=== PATIENT | female | born 1945 | race Caucasian/White ===

== ENCOUNTER 2018-09-23 09:54 | Day surgery (SDC) | payer MEDICARE ==
[~2018-09-23 09:54] MED LIST: Acetaminophen TAB* 325 MG PO PRN; Buffered Lidocaine 1% SYRIN* 1 ML/SYRINGE INTRADERM ONE
[2018-09-23] MEDS ORDERED: Midazolam* 1 MG/ML 2 ML VIAL (2 MG) ONE (12:50)
[2018-09-23 13:40] VITALS: BP 140/67
[2018-09-23] MEDS ORDERED: Ketorolac 0.5% OPHTH (NF) 0.5 % 5 ML BTL ONE (13:50)
[2018-09-23] MEDS ORDERED: Cyclopentolate 1% OPTH.SOL* 2 ML BTL ONE (13:50)
[2018-09-23] MEDS ORDERED: Neomycin/Polymy/Dex OPTH.SUSP* MAXITROL 0.1% 5 ML ONE (13:50)
[2018-09-23] MEDS ORDERED: Lidocaine 1%* 5 ML VIAL ONE (13:50)
[2018-09-23] MEDS ORDERED: Povidone Iodine 5% OPTH* 30 ML BTL ONE (13:50)
[2018-09-23] MEDS ORDERED: Lidocaine 2% EPI 1:200000 MPF*10-20 ML VIAL ONE (13:50)
[2018-09-23] MEDS ORDERED: acetaZOLAMIDE TAB* 250 MG ONE (13:50)
[2018-09-23] MEDS ORDERED: Proparacaine 0.5% OPHTH.SOL* 15 ML BTL ONE (13:50)
[2018-09-23] MEDS ORDERED: Phenylephrine OPHTH SOL 2.5%* 2 ML ONE (13:50)
--- NOTE | 2018-09-23 14:02 | OP ---
OPERATIVE NOTE: DATE OF OPERATION: 09/23/18 DATE OF : 41 SURGEON: Biju Beard M.D. PREOPERATIVE DIAGNOSIS: Cataract, left eye. POSTOPERATIVE DIAGNOSIS: Cataract, left eye. OPERATIVE PROCEDURE: Extracapsular cataract extraction with intraocular lens implant left eye. PROCEDURE: The patient was brought to the operating room after being given 1/2% Alcaine with epineph rine drops in the preoperative area. The eye was prepped and draped in the usual sterile fashion. S terile drape and eyelid speculum were placed. Again, topical 1/2% Alcaine with epinephrine was given . A paracentesis incision was made at the 3 o'clock position with the No.75 blade. Clear cornea inc ision 2.2 x 2.2-mm was created at the 6 o'clock position starting at the anterior limbus using the 2. 2-mm keratome. The anterior chamber was irrigated with 0.4 mL of 1% non-preservative intracameral li docaine and filled with DisCoVisc. A capsulorrhexis was completed using the cystotome and the Utrata forceps. Hydrodissection was performed with balanced salt solution. The lens nucleus was removed wi th the Phacoemulsification handpiece without incident. Cortex was removed with the irrigation-aspira tion handpiece. The capsular bag was re-inflated using DisCoVisc and an [id number] implant was insert ed with the shooter. The irrigation-aspiration handpiece was used to remove all residual DisCoVisc. The eye was refilled with balanced salt solution and the wound checked and found to be watertight. Topical Maxitrol drops were given. [id number]/[facility] #: [id number]
== END 2018-09-23 13:27 | disposition home or self-care (01) ==
LOC: OREAST 09:54
PROVIDERS: ATTEND Specialist
DX: H25.12 Age-related nuclear cataract, left eye (principal); I10 Essential (primary) hypertension; H52.229 Regular astigmatism, unspecified eye; Z87.891 Personal history of nicotine dependence
CPT/HCPCS: A9270-GY; J2250; V2632

== ENCOUNTER 2018-09-30 10:29 | Day surgery (SDC) | payer MEDICARE ==
[2018-09-30] MEDS ORDERED: fentaNYL* 50 MCG/ML 2 ML VIAL (100 MCG VIAL) ONE (11:05)
[2018-09-30] MEDS ORDERED: Midazolam* 1 MG/ML 2 ML VIAL (2 MG) ONE (11:05)
[2018-09-30] MEDS ORDERED: Cyclopentolate 1% OPTH.SOL* 2 ML BTL ONE (13:45)
[2018-09-30] MEDS ORDERED: Lidocaine 1%* 5 ML VIAL ONE (13:45)
[2018-09-30] MEDS ORDERED: Ketorolac 0.5% OPHTH (NF) 0.5 % 5 ML BTL ONE (13:45)
[2018-09-30] MEDS ORDERED: Proparacaine 0.5% OPHTH.SOL* 15 ML BTL ONE (13:45)
[2018-09-30] MEDS ORDERED: Lidocaine 2% EPI 1:200000 MPF*10-20 ML VIAL ONE (13:45)
[2018-09-30] MEDS ORDERED: Neomycin/Polymy/Dex OPTH.SUSP* MAXITROL 0.1% 5 ML ONE (13:45)
[2018-09-30] MEDS ORDERED: acetaZOLAMIDE TAB* 250 MG ONE (13:45)
[2018-09-30] MEDS ORDERED: Povidone Iodine 5% OPTH* 30 ML BTL ONE (13:45)
[2018-09-30] MEDS ORDERED: Phenylephrine OPHTH SOL 2.5%* 2 ML ONE (13:45)
[2018-09-30 14:17] VITALS: BP 126/68
--- NOTE | 2018-09-30 17:55 | OP ---
DATE OF OPERATION: 09/30/18 [facility] DATE OF : 41 SURGEON: Biju Beard M.D. PREOPERATIVE DIAGNOSIS: Cataract, right eye. POSTOPERATIVE DIAGNOSIS: Cataract, right eye. OPERATIVE PROCEDURE: Extracapsular cataract extraction with intraocular lens implant, right eye. DESCRIPTION OF PROCEDURE: The patient was brought to the operating room after being given 1/2% Alcaine with epinephrine drops in the preoperative area. The eye was prepped and draped in the usual sterile fashion. Sterile drape and eyelid speculum were placed. Again, topical 1/2% Alcaine with epinephrine was given. A paracentesis incision was made at the 9 o'clock position with the No.75 blade. Clear cornea incision 2.2 x 2.2-mm was created at the 12 o'clock position starting at the anterior limbus using the 2.2-mm keratome. The anterior chamber was irrigated with 0.4 mL of 1% non-preservative intracameral lidocaine and filled with DisCoVisc. A capsulorrhexis was completed using the cystotome and the Utrata forceps. Hydrodissection was performed with balanced salt solution. The lens nucleus was removed with the Phacoemulsification handpiece without incident. Cortex was removed with the irrigation-aspiration handpiece. The capsular bag was re-inflated using DisCoVisc and an [id number] implant was inserted with the shooter. The irrigation-aspiration handpiece was used to remove all residual DisCoVisc. The eye was refilled with balanced salt solution and the wound checked and found to be watertight. Topical Maxitrol drops were given. [id number]/[facility] #: [id number] MTDD
== END 2018-09-30 14:25 | disposition home or self-care (01) ==
LOC: OREAST 10:29
PROVIDERS: ATTEND Specialist
DX: H25.11 Age-related nuclear cataract, right eye (principal); Z87.891 Personal history of nicotine dependence; I10 Essential (primary) hypertension; F32.9 Major depressive disorder, single episode, unspecified
CPT/HCPCS: A9270-GY; J2250; J3010; V2632

== ENCOUNTER 2020-07-17 05:46 | Inpatient (IN) ==
[2020-07-17] MEDS ORDERED: Lactated Ringers 1000 ml BAG 1,000 ML IV SCH (06:00)
[2020-07-17] MEDS ORDERED: Buffered Lidocaine 1% SYRIN 1 ml INTRADERM ONE ×2 (06:00→06:51)
[2020-07-17] MEDS ORDERED: ceFAZolin 2 GM PREMIX 2 GM/50 ML BAG ONE (06:51)
[2020-07-17] MEDS ORDERED: Bacitracin INJECTION 50,000 UNITS ONE (06:55)
[2020-07-17] MEDS ORDERED: Lidocaine 1% w EPI 1:200,000 SDV 30 ML VIAL ONE (06:55)
[2020-07-17] MEDS ORDERED: Bupivacaine 0.25% SDV 30 ML ONE (06:55)
[2020-07-17] MEDS ORDERED: Midazolam 2 mg/2 ml VIAL 1 mg/ml 2 ml VIAL (2 mg) ONE (07:31)
[2020-07-17] MEDS ORDERED: fentaNYL 100 mcg/2 ml 50 MCG/ML VIAL ONE (07:31)
[2020-07-17] MEDS ORDERED: Rocuronium 50 mg VIAL 10 mg/ml 5 ml VIAL (50 mg) ONE (07:33)
[2020-07-17] MEDS ORDERED: Lidocaine 2% PF 5 ML VIAL ONE (07:34)
[2020-07-17] MEDS ORDERED: Succinylcholine 200 mg VIAL 20 mg/ml 10 ml VIAL (200 mg) ONE ×2 (07:34→08:49)
[2020-07-17] MEDS ORDERED: Propofol 10 MG/ML 20 ML BTL ONE (07:34)
[2020-07-17] MEDS ORDERED: Ketamine HCL 50 mg/ml 10 ml VIAL (500 MG) ONE (08:24)
[2020-07-17] MEDS ORDERED: Ondansetron 4 mg VIAL 2 MG/ML 2 ml VIAL ONE (08:49)
[2020-07-17] MEDS ORDERED: Dexamethasone IV 4 MG/ML VIAL 1 ml VIAL ONE (08:49)
[2020-07-17] MEDS ORDERED: Glycopyrrolate IV 0.2 MG/ML 1 ML VIAL ONE (08:49)
[2020-07-17] MEDS ORDERED: DiMENhydriNATE IV 50 mg/ml 1 ml VIAL ONE (08:49)
[2020-07-17] MEDS ORDERED: Phenylephrine 40 mcg/mL 10mL (400mcg) SYRINGE ONE (08:52)
[2020-07-17] MEDS ORDERED: DiMENhydriNATE IV 50 mg/ml 1 ml VIAL IV PUSH PRN (09:02)
[2020-07-17] MEDS ORDERED: Naloxone 0.4 mg VIAL 0.4 mg/ml 1 ml VIAL IV PRN (09:02)
[2020-07-17] MEDS ORDERED: Acetaminophen IV 1 GM/100ML 100 ML ONE (09:02)
[2020-07-17] MEDS ORDERED: HYDROcodone/ACETAMIN 5/325 mg TAB PO PRN (09:50)
[2020-07-17] MEDS ORDERED: Ondansetron 4 mg VIAL 2 MG/ML 2 ml VIAL IV PRN (09:50)
[2020-07-17] MEDS ORDERED: Magnesium Hydroxide LIQ 30 ML UDC PO PRN (09:50)
[2020-07-17] MEDS ORDERED: HYDROmorphone 1 MG/1 ML SYRINGE ONE (10:03)
[2020-07-17] MEDS: HYDROmorphone 1 MG/1 ML SYRINGE IV PRN ×3 (10:06→10:50)
[2020-07-17] MEDS ORDERED: HYDROcodone/ACETAMIN 5/325 mg TAB ONE (10:53)
[2020-07-17] MEDS: HYDROcodone/ACETAMIN 5/325 mg TAB PO PRN ×2 (14:51→19:03)
[2020-07-17] MEDS ORDERED: Benzocaine/Menthol LOZ PO PRN (18:59)
[2020-07-18] MEDS: HYDROcodone/ACETAMIN 5/325 mg TAB PO PRN ×2 (06:37→11:18)
[2020-07-18 07:56] VITALS: BP 125/53
== END 2020-07-18 11:52 | disposition home or self-care (01) | DRG 520 ==
LOC: AA 05:46 → SSU 11:08
PROVIDERS: ADMIT Neurological Surgery; ATTEND Neurological Surgery